=== PATIENT | male | born 1930 | race Caucasian/White ===

== ENCOUNTER 2017-01-10 19:21 | Inpatient (IN) | payer MEDICARE, OTHER ==
[~2017-01-10] VITALS: Ht 180.3 cm; Wt 70.6 kg
[2017-01-10] MEDS ORDERED: ASPIRIN 325 MG TAB PO STA (19:33)
--- NOTE | 2017-01-10 19:48 | RADRPT ---
PROCEDURE: CT Brain without contrast. CLINICAL INDICATION: Code stroke TECHNIQUE: A CT of the brain was performed utilizing axial imaging from the skull base through the vertex without intravenous contrast. Multiplanar reformatted images were made.The CTDIvol is 43.16 mGy and the DLP is 720.23 mGycm. One or more the following dose reduction techniques were utilized: Automated exposure control, adjus tment of the mA and / or kV according to patient's size, or use of iterative reconstruction techniqu e. DICOM images are available. COMPARISON: None. FINDINGS: There is no intracranial hemorrhage, mass effect, or midline shift. No extra-axial fluid collection is seen. Moderate atrophy is identified with compensatory ventricular and sulcal enlargement. Mil d decreased attenuation is seen in the periventricular and deep white matter, compatible with microv ascular ischemic disease. The lindsey white matter differentiation is well preserved with no acute infa rct detected. The osseous structures and visualized paranasal sinuses are unremarkable. Arterial ca lcification. IMPRESSION: No acute bleed. No acute major territory infarct seen. Critical result discussed Dr. Torres at 07: 45 p.m. on 01/10/2017. RPTAT: HJES .Leighton Alas MD, MD Date Time Electronically viewed and signed by .Leighton Alas MD, MD on 01/10/2017 19:48 .S/
[2017-01-10 19:56] LABS: BASOPHILS % 0.7 % (0.0-2.0); EOSINOPHILS # 0.2 10^3/ul (0.0-0.5); EOSINOPHILS % 2.7 % (0.0-7.0); HEMOGLOBIN 12.5 g/dl (14.0-18.0); LYMPHOCYTES # 1.6 10^3/ul (0.8-2.9); LYMPHOCYTES % 27.7 % (15.0-51.0); MEAN CORPUSCULAR HGB CONC 32.1 g/dl (32.0-37.0); MEAN CORPUSCULAR VOLUME 93.8 fl (82.0-101.0); MEAN PLATELET VOLUME 10.3 fl (7.4-10.4); MONOCYTE # 0.6 10^3/ul (0.3-0.9); NEUTROPHIL # 3.3 10^3/ul (1.6-7.5); NEUTROPHILS % 57.7 % (39.0-77.0); PLATELET COUNT 136 10^3/UL (140-415); POSITIVE DIFF @See below; RED BLOOD COUNT 4.16 10^6/ul (4.70-6.10); RED CELL DISTRIBUTION WIDTH 12.8 % (11.5-14.5); WHITE BLOOD COUNT 5.6 10^3/ul (4.8-10.8)
[2017-01-10 20:09] LABS: INR 0.98; PARTIAL THROMBOPLASTIN TIME 27.8 Sec (25.0-35.0)
[2017-01-10 20:11] LABS: ALBUMIN 3.9 g/dl (3.3-4.9); ALBUMIN/GLOBULIN RATIO 1.18; CALCIUM 8.7 mg/dl (8.4-10.2); CREATININE 3.23 mg/dl (0.61-1.24); POTASSIUM 4.7 mmol/L (3.5-5.1); TOTAL PROTEIN 7.2 g/dl (6.1-8.1)
--- NOTE | 2017-01-10 20:13 | RADRPT ---
PROCEDURE: XR Chest. CLINICAL INDICATION: Possible stroke. TECHNIQUE: Single frontal view of the chest. COMPARISON: None. FINDINGS: The cardiomediastinal silhouette is within normal limits. Aortic calcifications are present. There is a retrocardiac opacity. No evidence of pneumothorax. Degenerative changes of the spine and shoulder joints are present. IMPRESSION: 1. Retrocardiac opacity likely representing subsegmental atelectasis (favored) or pneumonia. RPTAT:AAJJ Contreras Cordova Physician Date Time Electronically viewed and signed by Contreras Cordova Physician on 01/10/2017 20:13 QL/
[2017-01-10 20:23] LABS: CK-MB 1.33 ng/ml (0.0-2.4); TROPONIN-I 0.028 ng/ml (0.00-0.12)
[2017-01-10 20:56] LABS: ADD UMIC YES; UR ASCORBIC ACID NEGATIVE (NEGATIVE); UR BILIRUBIN (Dip) NEGATIVE (NEGATIVE); UR BLOOD (Dip) 1+ mg/dL (NEGATIVE); UR CLARITY CLEAR (CLEAR); UR COLOR STRAW (YELLOW); UR GLUCOSE (Dip) 1+ mg/dL (NEGATIVE); UR KETONES (Dip) NEGATIVE (NEGATIVE); UR LEUKOCYTE ESTERASE (Dip) NEGATIVE Leu/ul (NEGATIVE); UR NITRITE (Dip) NEGATIVE (NEGATIVE); UR RBC 1 /HPF (0-5); UR SPECIFIC GRAVITY (Dip) 1.012 (1.003-1.030); UR TOTAL PROTEIN (Dip) 2+ mg/dl (NEGATIVE); UR UROBILINOGEN (Dip) NEGATIVE (NEGATIVE)
[2017-01-10] MEDS ORDERED: LABETALOL HCL 20MG INJ IV ONE ×2 (21:30→22:30)
[2017-01-10 21:41] LABS: BARBITURATES Negative (NEGATIVE); BENZODIAZEPINES Negative (NEGATIVE); CANNABINOIDS Negative (NEGATIVE); COCAINE Negative (NEGATIVE); OPIATES Negative (NEGATIVE)
[2017-01-10 22:02] VITALS: TEMP 98.4
[2017-01-10] MEDS ORDERED: TOBR5DRO14 LEFT EYE (22:14)
[2017-01-10] MEDS ORDERED: DOXY100T20 PO (22:14)
--- NOTE | 2017-01-10 22:27 | ERD ---
ER Documentation Chief Complaint Chief Complaint weakness, fall, aphagia today- last known well 1800 HPI This is an 86-year-old male presents to the emergency department complaining of a sudden onset of slurred speech and weakness that occurred 35 minutes prior to arrival. The patient's last known normal time was at 6:45 PM. The patient was standing when he collapsed and slowly slid down the side of the bed and this was witnessed by his . She stated he did not hit his head or lose consciousness. He suddenly had slurred speech and was speaking nonsensical sentences. He is Prydeinig speaking but also understands Kittitian and Bulgarian. He had no recent fever shaking or chills. He has not complained of a recent headache. His known history of kidney failure but is not on dialysis. He also has a history of [id number] diabetes and hypertension. His daughter and immediately brought him to the emergency department to be further evaluated. He recently began doxycycline several days ago as he had a nodule on his left eye that had been surgically removed. ROS All systems reviewed and are negative except as per history of present illness. Medications Home Meds Reported Medications Tobramycin-Dexamethasone (Tobramycin-Dexamethasone Ophth) 0.3%-0.1% - 5 Ml Drops.susp, 1 DROP LEFT EYE TID, #1 EA 01/10/17 Doxycycline Hyclate* (Doxycycline Hyclate*) 100 Mg Tablet.dr, 100 MG PO BID, TAB 01/10/17 Allergies Allergies: Coded Allergies: No Known Allergy (Unverified , 01/10/17) PMhx/Soc History of Surgery: Yes (HERNIA, PROSTATE, GALLBLADDER) Anesthesia Reaction: No Hx Neurological Disorder: No Hx Respiratory Disorders: No Hx Cardiac Disorders: No Hx Psychiatric Problems: No Hx Miscellaneous Medical Probl: No (HTN) Hx Alcohol Use: No Hx Tobacco Use: No Smoking Status: Never smoker Physical Exam Vitals Vital Signs Date Time Temp Pulse Resp B/P Pulse Ox O2 Delivery O2 Flow Rate FiO2 01/10/17 22:02 98.4 79 18 183/80 100 Nasal Cannula 2.0 01/10/17 21:08 71 20 208/98 100 Nasal Cannula 2.0 01/10/17 20:26 98.6 69 18 189/95 100 Nasal Cannula 2.0 01/10/17 20:08 Nasal Cannula 2 01/10/17 20:08 Nasal Cannula 2.0 01/10/17 20:00 98 2.0 01/10/17 19:25 97.7 86 30 119/88 98 Physical Exam Constitutional:Well-developed. Well-nourished. HEENT:Normocephalic. Atraumatic.Pupils were equal round reactive to light. Moist mucous membranes.No tonsillar exudates. Surgical scab on the left is clean dry and intact Neck: No nuchal rigidity. No lymphadenopathy. No posterior cervical spine tenderness or step-offs. Respiratory: Not using accessory muscles of respiration.Lungs were clear to auscultation bilaterally. No rhonchi. No rales. No wheezing. Cardiovascular: Regular rate regular rhythm.No murmurs. No rubs were appreciated.S1, S2 normal. Distal pulses are palpable 2+ bilaterally. GI: Abdomen was soft. Nontender. Non Distended. No pulsatile abdominal masses or bruits. No rebound. No guarding. Bowel sounds were present and normal. Muscle skeletal: Full range of motion of both the upper and lower extremities bilaterally.Normal muscle tone.No assymetrical calf tenderness or swelling. Skin: No petechia, no purpura. No lesions on the palms or the soles of the feet. No maculopapular rash. NEURO: Patient was alert, awake. Patient did not have slurred speech. He was speaking nonsensical words. He would follow verbal commands. No limb ataxia. No facial droop. Gait observed and normal with no ataxia. Patient intact to sharp and dull. Result Diagram: 01/10/17192401/10/171924 Results 24 hrs Laboratory Tests Test 01/10/17 19:25 01/10/17 20:15 White Blood Count 5.610^3/ul Red Blood Count 4.1610^6/ul Hemoglobin 12.5g/dl Hematocrit 39.0% Mean Corpuscular Volume 93.8fl Mean Corpuscular Hemoglobin 30.0pg Mean Corpuscular Hemoglobin Concent 32.1g/dl Red Cell Distribution Width 12.8% Platelet Count 38057^3/UL Mean Platelet Volume 10.3fl Neutrophils % 57.7% Lymphocytes % 27.7% Monocytes % 11.0% Eosinophils % 2.7% Basophils % 0.7% Nucleated Red Blood Cells % 0.0/100WBC Neutrophils # 3.310^3/ul Lymphocytes # 1.610^3/ul Monocytes # 0.610^3/ul Eosinophils # 0.210^3/ul Basophils # 0.010^3/ul Nucleated Red Blood Cells # 0.010^3/ul Prothrombin Time 13.0Sec Prothrombin Time Ratio 1.0 INR International Normalized Ratio 0.98 Activated Partial Thromboplast Time 27.8Sec Sodium Level 147mmol/L Potassium Level 4.7mmol/L Chloride Level 114mmol/L Carbon Dioxide Level 21mmol/L Anion Gap 17 Blood Urea Nitrogen 54mg/dl Creatinine 3.23mg/dl Glucose Level 101mg/dl Hemoglobin A1c 5.6% Calcium Level 8.7mg/dl Total Bilirubin 0.0mg/dl Direct Bilirubin 0.00mg/dl Indirect Bilirubin 0.0mg/dl Aspartate Amino Transf (AST/SGOT) 16IU/L Alanine Aminotransferase (ALT/SGPT) 25IU/L Alkaline Phosphatase 108IU/L Creatine Kinase 41IU/L Creatine Kinase Index 3.2 Creatinine Kinase MB (Mass) 1.33ng/ml Troponin I 0.028ng/ml Total Protein 7.2g/dl Albumin 3.9g/dl Globulin 3.30g/dl Albumin/Globulin Ratio 1.18 Urine Color STRAW Urine Clarity CLEAR Urine pH 5.0 Urine Specific Jackson 1.012 Urine Ketones NEGATIVEmg/dL Urine Nitrite NEGATIVEmg/dL Urine Bilirubin NEGATIVEmg/dL Urine Urobilinogen NEGATIVEmg/dL Urine Leukocyte Esterase NEGATIVELeu/ul Urine Microscopic RBC 1/HPF Urine Microscopic WBC 0/HPF Urine Hemoglobin 1+mg/dL Urine Glucose 1+mg/dL Urine Total Protein 2+mg/dl Urine Opiates Screen Negative Urine Barbiturates Negative Urine Amphetamines Screen Negative Urine Benzodiazepines Screen Negative Urine Cocaine Screen Negative Urine Cannabinoids Negative Current Medications Medications (Trade) Dose Ordered Sig/Jerri Route PRN Reason Start Time Stop Time Status Last Admin Dose Admin Aspirin (Aspirin) 325 mg ONCE STAT PO 01/10/17 19:33 01/10/17 19:34 DC 01/10/17 19:33 Labetalol HCl (Labetalol) 10 mg ONCE ONCE IV 01/10/17 21:30 01/10/17 21:31 DC 01/10/17 21:09 [facility] This patient presented to the emergency department with strokelike symptoms. The patient was immediately placed on a monitor and storage bin tender continuous pulse oximetry and IV access was established by nursing staff. The patient had an NIH stroke scale of 1. CT scan of the head revealed no acute intracranial hemorrhage mass-effect or midline shift. The patient was seen and evaluated by the telemetry psychiatrist Dr. Vallecillo. Upon my reevaluation with the patient returning from the CT scan his symptoms had significantly improved. The patient was now speaking in full complete sentences answering all questions appropriately with no focal neurological deficits at this time. Given that the patient's symptoms had significantly improved he was no longer a TPA candidate. He will be admitted for observation and will undergo an MRI upon admission. This patient also presented to the emergency department with severely elevated blood pressure. My differential diagnosis included but was not limited to conditions that could end-organ damage such as acute coronary syndrome, acute pulmonary edema, aortic dissection, subarachnoid hemorrhage, intracerebral hemorrhage, cerebral infarction, withdrawal syndromes from beta blockers, or states of catecholamine excess such as pheochromocytoma or drug intoxication. The patient had uncontrolled hypertensive with end-organ damage to suggest hypertensive emergency. The treatment goal was immediate reduction of the mean arterial blood pressure. This was done in a controlled, graded manor, using improvement of the patient's condition as a guide. The patient's blood pressure reduction did not exceed more then a 20-25 percent reduction within the first 30 to 60 minutes. The antihypertensive agent used was IV labetalol and Cardene. The patient did have a swallow study which he passed. 12 Lead EKG tracing ordered and reviewed by myself showed: Normal sinus rhythm of 84 bpm and no arrhythmia. CO interval normal. QRS duration normal. No ST segment elevation. Premature ventricular complexes No ST segment depression. No changes consistent with acute ischemia. Patient will be admitted to the telemetry service in serious condition to the hospitalist with an anticipated stay of greater than 2 midnights Critical Care: Time: 55 minutes Treatments/Evaluations: Close monitoring and treatment of unstable vital signs, cardiorespiratory, and neurologic status, while maintaining tight balance of fluid, respiratory, and cardiac interventions. Time does not include performing any of the above billable procedures. Departure Diagnosis: Primary Impression: TIA (transient ischemic attack) Transient cerebral ischemia type: unspecified Qualified Code: G45.9 - Transient cerebral ischemia, unspecified type Additional Impression: Hypertensive emergency, no CHF Condition: Serious SUKDHEEP LUIS Jan 10, 2017 22:27
[2017-01-10] MEDS ORDERED: NICARDipine HCL 30 MG CAPSULE PO ONE (22:30)
[2017-01-10 23:20] VITALS: PULSE 65
[2017-01-10] MEDS ORDERED: ALBUTEROL/IPRATROPIUM (NEB) 3 ML AMP HHN PRN (23:30)
[2017-01-10] MEDS ORDERED: NACL 0.9% 3 ML SYG IV SCH (23:30)
[2017-01-10] MEDS ORDERED: ONDANSETRON 4 MG INJ IV PRN (23:30)
[2017-01-10] MEDS ORDERED: LORAZEPAM 0.5 MG TAB PO PRN (23:30)
[2017-01-10] MEDS ORDERED: morphine 2 MG INJ IV PRN (23:30)
[2017-01-10 23:37] VITALS: BP 185/89; PULSE 77; RESP 18; Ht 180.3 cm; Wt 70.6 kg
[2017-01-11] VITALS (11 sets, daily range): BP systolic 114–204; BP diastolic 64–91; PULSE 59–78; RESP 14–19
[2017-01-11] MEDS ORDERED: hydrALAzine 20 MG INJ IV PRN (01:00)
--- NOTE | 2017-01-11 06:02 | HP ---
Date/Time of Note Date/Time of Note DATE: 01/11/17 TIME: 05:49 Assessment/Plan VTE Prophylaxis VTE Prophylaxis Intervention: heparin Lines/Catheters IV [facility] Saline Lock Urinary Cath still in place: No Assessment/Plan Assessment/Plan 1. TIA, most likely secondary to orthostatic hypotension -Head CT negative for acute findings -He will be on aspirin, statin and heparin for DVT prophylaxis -will order MRI of the brain and bilateral carotid Doppler ultrasound -For 24 hours, will allow permissive hypertension and will not treat BP unless it is greater than 220/120 -Tylenol will be given for any sign of fever -Check A1c and fasting lipid in a.m. -Neurology consult -PT and speech/swallow eval 2. Hypertensive urgency -See #1 3. CKD -Avoid nephrotoxins -Consider nephrology consult 4. Mild hypernatremia -will check a.m. lab for now 5. Retrocardiac opacity on the chest x-ray, likely atelectasis -No sign of pneumonia -Supplemental oxygen as needed -Will treat with antibiotic based on clinical course 6. Recent left eye surgery -Continue outpatient eyedrops HPI/ROS Admit Date/Time Admit Date/Time Jan 10, 2017 at 21:04 Hx of Present Illness This is an 86-year-old male with a history of hypertension, CKD and recent left eye surgery who presented to the ER for slurred speech. Patient stated she was diagnosed with orthostatic hypotension 8 years ago and had multiple workup with no definitive diagnosis. He said he had fell down multiple times since the diagnosis of orthostatic hypotension. What happens this time was, he was lying in bed when the phone, which was out of reach, start ringing. He got out of his bed quickly, then he said his vision went black and fell down to the floor in his bedroom. He was then noted to have slurred speech. Patient was brought to the ER about 35 minutes after symptom onset. No focal weakness/numbness, headache, facial droop, or seizure-like activity. ER physician talked to the on -call tele-neurologist who did not recommend a TPA given symptom have resolved. He said he had extensive workup for orthostatic hypotension but said 'nobody knows the reason". He had negative stress tests 3 months ago. About a year ago he was told his bilateral carotid Doppler ultrasound was normal. He also states about a year ago he had an MRI and was told that "there is something inside, not serious staff " ER course: Initial blood pressure 119/88 but has been noted to be as high as 208 /98. He was given a nicardipine and labetalol while he was in the ER. Head CT was negative for acute findings. Chest x-ray showed retrocardiac opacity, atelectasis likely, but pneumonia also a possibility. Labs shows sodium of 147 , chloride 114, BUN 54, creatinine 3.2. PMH/Family/Social Social History Smoking Status: Unknown if ever smoked Exam/Review of Systems Vital Signs Vitals Vital Signs Date Time Temp Pulse Resp B/P Pulse Ox O2 Delivery O2 Flow Rate FiO2 01/11/17 04:09 97.8 54 18 163/64 96 01/10/17 23:37 Room Air 01/10/17 22:45 2.0 Intake and Output 01/10/17 01/10/17 01/11/17 15:00 23:00 07:00 Intake Total 340 ml Output Total 250 ml Balance 90 ml Exam Constitutional: other (No acute distress) Head: atraumatic, normocephalic Eyes: other (Left eye, status post recent surgery) Neck: other Respiratory: clear to auscultation Cardiovascular: nl pulses, regular rate and rhythm Gastrointestinal: non-tender, soft Extremities: normal pulses Neurological: nl mental status, nl speech, nl strength Labs Result Diagram: 01/10/17192401/10/171924 Medications Medications Current Medications Lorazepam (Ativan) 0.5 mg Q8H PRN PO ANXIETY; Start 01/10/17 at 23:30 Ondansetron HCl (Zofran Inj) 4 mg Q6H PRN IV NAUSEA AND/OR VOMITING; Start 02/14 at 23:30 Aspirin (Aspirin) 81 mg DAILY PO ; Start 01/11/17 at 09:00 Acetaminophen (Tylenol Tab) 650 mg Q6H PRN PO PAIN LEVEL 1-3 OR FEVER; Start 01/10/17 at 23:30 Morphine Sulfate (morphine) 2 mg Q4H PRN IV PAIN LEVEL 7-10; Start 01/10/17 at 23:30 Famotidine (Pepcid) 20 mg DAILY PO ; Start 01/11/17 at 09:00 Heparin Sodium (Porcine) (Heparin (5000 Units/0.5 ml)) 5,000 unit Q12 SC ; Start 01/11/17 at 09:00 Atorvastatin Calcium (Lipitor) 20 mg DAILY PO ; Start 01/11/17 at 09:00 Doxycycline Hyclate (Vibramycin) 100 mg BID PO ; Start 01/11/17 at 00:00 Tobramycin/ Dexamethasone (Tobradex Oph Drop) 1 drop TID LEFT EYE ; Start 01/11 at 09:00 Hydralazine HCl (Apresoline) 10 mg Q4H PRN IV FOR SBP ABOVE 220 & DBP [id number]; Start 01/11/17 at 01:00 MAREK TERAN MD Jan 11, 2017 06:00
[2017-01-11 07:34] LABS: BASOPHIL # 0.1 10^3/ul (0.0-0.1); BASOPHILS % 0.9 % (0.0-2.0); EOSINOPHILS # 0.2 10^3/ul (0.0-0.5); EOSINOPHILS % 3.3 % (0.0-7.0); HEMATOCRIT 34.3 % (42.0-52.0); LYMPHOCYTES # 1.8 10^3/ul (0.8-2.9); LYMPHOCYTES % 30.3 % (15.0-51.0); MEAN CORPUSCULAR HEMOGLOBIN 29.3 pg (29.0-33.0); MEAN CORPUSCULAR HGB CONC 32.1 g/dl (32.0-37.0); MEAN CORPUSCULAR VOLUME 91.5 fl (82.0-101.0); MEAN PLATELET VOLUME 11.4 fl (7.4-10.4); MONOCYTE # 0.7 10^3/ul (0.3-0.9); MONOCYTES % 11.4 % (0.0-11.0); NEUTROPHIL # 3.1 10^3/ul (1.6-7.5); NEUTROPHILS % 53.9 % (39.0-77.0); PLATELET COUNT 134 10^3/UL (140-415); RED BLOOD COUNT 3.75 10^6/ul (4.70-6.10); RED CELL DISTRIBUTION WIDTH 12.9 % (11.5-14.5); WHITE BLOOD COUNT 5.8 10^3/ul (4.8-10.8)
[2017-01-11 07:54] LABS: ALBUMIN 3.1 g/dl (3.3-4.9); ALBUMIN/GLOBULIN RATIO 1.03; BILIRUBIN,INDIRECT 0.1 mg/dl (0-1.1); BILIRUBIN,TOTAL 0.1 mg/dl (0.2-1.3); CALCIUM 8.6 mg/dl (8.4-10.2); CHOL/HDL RATIO 3.5 RATIO; CREATININE 2.94 mg/dl (0.61-1.24); POTASSIUM 4.2 mmol/L (3.5-5.1); TOTAL PROTEIN 6.1 g/dl (6.1-8.1)
[2017-01-11] MEDS: HEPARIN 5,000 UNIT/0.5 ML VIAL SC SCH ×3 (09:00→21:48)
[2017-01-11] MEDS: DOXYCYCLINE 100 MG TAB PO SCH ×3 (09:27→21:00)
[2017-01-11] MEDS: TOBRAMYCIN/DEXAMETH 2.5 ML OPH LEFT EYE SCH ×4 (09:28→21:49)
[2017-01-11] MEDS: ASPIRIN 81 MG TAB PO SCH (09:28)
[2017-01-11] MEDS: FAMOTIDINE 20 MG TAB PO SCH (09:28)
[2017-01-11] MEDS: ATORVASTATIN 20 MG TAB PO SCH (09:28)
--- NOTE | 2017-01-11 11:19 | RADRPT ---
PROCEDURE: US Carotids. CLINICAL INDICATION: Syncope and TIA TECHNIQUE: Multiple sonographic of the carotid bifurcation region and vertebral arteries were obta ined utilizing lindsey scale, duplex and color-flow imaging. The images were reviewed on a PACS worksta tion. COMPARISON: January 29, 2011 FINDINGS: Evaluation of the right carotid bifurcation region reveals mild calcific atherosclerotic disease. Evaluation of the left carotid bifurcation region reveals mild calcific atherosclerotic disease. There is antegrade flow within the vertebral arteries bilaterally. RIGHT CAROTID MEASUREMENTS: Common Carotid Xiupet17 (cm/sec) Internal Carotid Artery - [id number] (cm/sec) Internal Carotid Artery - mid53 (cm/sec) Internal Carotid Artery - [id number] (cm/sec) Internal Carotid/Common Carotid1.1 LEFT CAROTID MEASUREMENTS: Common Carotid Artery 67 (cm/sec) Internal Carotid Artery - proximal 64 (cm/sec) Internal Carotid Artery - mid 56 (cm/sec) Internal Carotid Artery - distal 51 (cm/sec) Internal Carotid/Common Carotid 1.0 IMPRESSION: 1. No evidence for hemodynamically significant carotid artery stenosis - validated velocity measur ements with angiographic measurements, velocity criteria are extrapolated from diameter data as defi suzan by the Society of Radiologists in Ultrasound Consensus Conference Radiology 2003; 229; 340 - 346 . This study does indirectly reference the measurement of the distal ICA diameter as the denominator for stenosis measurement. 2. Normal antegrade flow in the vertebral arteries bilaterally. RPTAT: AARR Physician Espinoza Date Time Electronically viewed and signed by Physician Espinoza on 01/11/2017 11:18 MARLNEI/
--- NOTE | 2017-01-11 15:34 | RADRPT ---
PROCEDURE: MR Brain without contrast. CLINICAL INDICATION: Neurologic deficit TECHNIQUE: An MRI of the brain was performed on a high-resolution MR scanner utilizing the followi ng sequences: Sagittal and axial T1 weighted, axial T2 weighted, axial FLAIR, coronal GRE, and axial diffusion weighted with ADC mapping. Images were reviewed high-resolution PACS workstation. No con trast was administered. COMPARISON: Correlation head CT 01/10/2017 FINDINGS: 4 mm right parafalcine dural based structure. No acute parenchymal hemorrhage, mass effect, or midline shift. No evidence of recent infarct. Scatt ered subcortical, deep, and periventricular white matter T2-weighted/FLAIR hyperintensities are cons istent with chronic microvascular ischemic disease. Prominence of the cortical sulci and ventricles are related to moderate cerebral volume loss. No suspicious parenchymal hypointense signal abnormalities are seen on the GRE images to suggest the presence of blood degradation products. Normal flow voids are visible in the proximal intracranial arteries suggesting their patency. No significant opacification of the paranasal sinuses or mastoids.The bilateral ocular lens are thin which could be due to prior lens replacement surgery. IMPRESSION: No acute intracranial abnormality or evidence of recent infarct. Mild chronic microvascular disease and moderate volume loss. 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 RPTAT: AA .Sebastian Cortez MD, MD Date Time Electronically viewed and signed by .Sebastian Cortez MD, on 01/11/2017 15:33 .T/
--- NOTE | 2017-01-11 15:55 | RADRPT ---
Echocardiogram Report Patient Name: JAMAAL RODRIGUEZ Gender: Male Date: 1930 Study Date: 11-Jan-2017 Exhauster: Dean Barahona [facility] Location: [id number] Ref. Physician: MAREK TERAN Quality: Good Procedures: Transthoracic echocardiogram with complete 2D, M-Mode, and doppler examination. Indications: Transient Ischemic Attack. 2D/M Mode Doppler Measurement Value Normal Ranges Measurement Value Normal Ranges LVIDd 2D 4.1 3.5 - 5.6 cm AV Peak Jaylon 1.4 m/sec LVIDs 2D 2.5 2.1 - 4.1 cm AV Peak PG 7.8 mmHg LVPWd 2D 1.0 0.6 - 1.1 cm AI Peak PG 109.9 mmHg IVSd 2D 1.1 0.6 - 1.1 cm AI Peak Jaylon 5.2 m/sec AoR Diam 2D 3.2 2.0 - 3.7 cm AI PHT 444.0 msec EDV 2D 75.8 cm3 LVOT Peak Jaylon 0.8 m/sec ESV 2D 15.2 cm3 LVOT Peak PG 2.7 mmHg LA Dimen 2D 3.7 2.3 - 4.0 cm MV E Peak Jaylon 0.8 m/sec MV A Peak Jaylon 0.8 m/sec MV E/A 0.9 MV Decel Time 237 msec MV Decel Wilkin 3 MV E/A 0.9 TR Peak Jaylon 3.1 m/sec TR Peak PG 37.8 mmHg RVSP 41.0 mmHg Findings Left Ventricle: Lower limits of normal systolic function. Normal left ventricular cavity size. Mild concentric left ventricular hypertrophy. Ejection fraction is visually estimated at 55 %. Tissue Doppler/Mitral Doppler indices are consistent with impaired relaxation (Stage I diastolic dysfunction). Right Ventricle: Normal right ventricular size. Normal right ventricular systolic function. Left Atrium: The left atrium is normal in size. Right Atrium: The right atrium is normal in size. Mitral Valve: Mitral valve leaflets appear mildly thickened. Mild mitral annular calcification. Trace mitral regurgitation. Aortic Valve: No hemodynamically significant aortic stenosis by doppler. Aortic cusps appear mildly calcified. Mild to moderate aortic valve regurgitation. Tricuspid Valve: Normal appearance of the tricuspid valve. Estimated peak PA systolic pressure 41 mmHg. There is mild tricuspid regurgitation. Pulmonic Valve: Pulmonic valve not well visualized. There is mild pulmonic regurgitation. Pericardium: Normal pericardium with no significant pericardial effusion. Aorta: Normal aortic root. IVC: Normal size and normal respiratory collapse consistent with normal right atrial pressure. Conclusions 1.Lower limits of normal systolic function. Normal left ventricular cavity size. Mild concentric left ventricular hypertrophy. Ejection fraction is visually estimated at 55 %. Tissue Doppler/Mitral Doppler indices are consistent with impaired relaxation (Stage I diastolic dysfunction). 2.The left atrium is normal in size. 3.Mitral valve leaflets appear mildly thickened. Mild mitral annular calcification. Trace mitral regurgitation. 4.No hemodynamically significant aortic stenosis by doppler. Aortic cusps appear mildly calcified. Mild to moderate aortic valve regurgitation. 5.Normal appearance of the tricuspid valve. Estimated peak PA systolic pressure 41 mmHg. There is mild tricuspid regurgitation. Electronically Signed By: Severino Faustin 11-Jan-2017 15:55:23 -0800 Patient Name: JAMAAL RODRIGUEZ Study Date: 11-Jan-2017 [id number]
[2017-01-11] MEDS ORDERED: AMLODIPINE 10 MG TAB PO ONE (17:00)
[2017-01-11] MEDS ORDERED: HYDROCHLOROTHIAZIDE 25 MG TAB PO ONE (17:00)
--- NOTE | 2017-01-11 17:23 | PN ---
Date/Time of Note Date/Time of Note DATE: 01/11/17 TIME: 17:13 Assessment/Plan VTE Prophylaxis VTE Prophylaxis Intervention: SCD's Lines/Catheters IV Catheter Type (from Nrs): Saline Lock Urinary Cath still in place: No Assessment/Plan Assessment/Plan 86 yo M admitted for 10 minutes of slurred speech in the setting of very high BP , clinical picture consistent with TIA v hypertensive urgency -cont asa, statin -start BP control ccb selected as lowish HRs preclude bb, ?ANH on CKD makes me reluctant to use acei, given h/o orthostasis I am disinclined to use diuretic -MRAs pending -PT/OT pending. ST in process -will call full stack developer tomorrow per daughter request cont home meds for recent eye surgery anticipate discharge in 1-2 days pending results of above Subjective 24 Hr Interval Summary Free Text/Dictation Pt and daughter state he is back to baseline Pt and daughter know about pt's meningioma that he's had for years Pt with known CKD hx, daughter requesting I call full stack developer Dr Shine Moreira , p [phone] Has only been in sinus on tele Exam/Review of Systems Vital Signs Vitals Vital Signs Date Time Temp Pulse Resp B/P Pulse Ox O2 Delivery O2 Flow Rate FiO2 01/11/17 16:19 59 01/11/17 15:57 98.1 19 204/91 96 01/10/17 23:37 Room Air 01/10/17 22:45 2.0 Intake and Output 01/10/17 01/10/17 01/11/17 15:00 23:00 07:00 Intake Total 340 ml Output Total 250 ml Balance 90 ml Exam nad speech not slurred no mrg lungs clear abd soft no rashes 5/5 strength bl U and LEs MRI just meningioma, TTE noted, a1c <6.5, LDL ok Results Result Diagram: 01/11/17 0652 01/11/17 0652 Results 24 hrs Laboratory Tests Test 01/10/17 19:25 01/10/17 20:15 01/11/17 06:52 White Blood Count 5.6 5.8 Red Blood Count 4.16 L 3.75 L Hemoglobin 12.5 L 11.0 L Hematocrit 39.0 L 34.3 L Mean Corpuscular Volume 93.8 91.5 Mean Corpuscular Hemoglobin 30.0 29.3 Mean Corpuscular Hemoglobin Concent 32.1 32.1 Red Cell Distribution Width 12.8 12.9 Platelet Count 136 L 134 L Mean Platelet Volume 10.3 11.4 H Neutrophils % 57.7 53.9 Lymphocytes % 27.7 30.3 Monocytes % 11.0 11.4 H Eosinophils % 2.7 3.3 Basophils % 0.7 0.9 Nucleated Red Blood Cells % 0.0 0.0 Neutrophils # 3.3 3.1 Lymphocytes # 1.6 1.8 Monocytes # 0.6 0.7 Eosinophils # 0.2 0.2 Basophils # 0.0 0.1 Nucleated Red Blood Cells # 0.0 0.0 Prothrombin Time 13.0 Prothrombin Time Ratio 1.0 INR International Normalized Ratio 0.98 Activated Partial Thromboplast Time 27.8 Sodium Level 147 H 146 H Potassium Level 4.7 4.2 Chloride Level 114 H 117 H Carbon Dioxide Level 21 20 L Anion Gap 17 H 13 Blood Urea Nitrogen 54 H 48 H Creatinine 3.23 H 2.94 H Glucose Level 101 87 Hemoglobin A1c 5.6 5.6 Calcium Level 8.7 8.6 Total Bilirubin 0.0 L 0.1 L Direct Bilirubin 0.00 0.00 Indirect Bilirubin 0.0 0.1 Aspartate Amino Transf (AST/SGOT) 16 15 Alanine Aminotransferase (ALT/SGPT) 25 19 Alkaline Phosphatase 108 81 Creatine Kinase 41 Creatine Kinase Index 3.2 Creatinine Kinase MB (Mass) 1.33 Troponin I 0.028 Total Protein 7.2 6.1 # Albumin 3.9 3.1 L Globulin 3.30 H 3.00 Albumin/Globulin Ratio 1.18 1.03 Urine Color STRAW Urine Clarity CLEAR Urine pH 5.0 Urine Specific [place] 1.012 Urine Ketones NEGATIVE Urine Nitrite NEGATIVE Urine Bilirubin NEGATIVE Urine Urobilinogen NEGATIVE Urine Leukocyte Esterase NEGATIVE Urine Microscopic RBC 1 Urine Microscopic WBC 0 Urine Hemoglobin 1+ H Urine Glucose 1+ H Urine Total Protein 2+ H Urine Opiates Screen Negative Urine Barbiturates Negative Urine Amphetamines Screen Negative Urine Benzodiazepines Screen Negative Urine Cocaine Screen Negative Urine Cannabinoids Negative Magnesium Level 2.0 Triglycerides Level 85 Cholesterol Level 146 LDL Cholesterol, Calculated 88 HDL Cholesterol 41 Cholesterol/HDL Ratio 3.5 Medications Medications Current Medications Ondansetron HCl (Zofran Inj) 4 mg Q6H PRN IV NAUSEA AND/OR VOMITING; Start 02/14 at 23:30 Aspirin (Aspirin) 81 mg DAILY PO Last administered on 01/11/17 09:28; Admin Dose 81 MG; Start 01/11/17 at 09:00 Acetaminophen (Tylenol Tab) 650 mg Q6H PRN PO PAIN LEVEL 1-3 OR FEVER; Start 01/10/17 at 23:30 Morphine Sulfate (morphine) 2 mg Q4H PRN IV PAIN LEVEL 7-10; Start 01/10/17 at 23:30 Famotidine (Pepcid) 20 mg DAILY PO Last administered on 01/11/17 09:28; Admin Dose 20 MG; Start 01/11/17 at 09:00 Heparin Sodium (Porcine) (Heparin (5000 Units/0.5 ml)) 5,000 unit Q12 SC Last administered on 01/11/17 10:54; Admin Dose 5,000 UNIT; Start 01/11/17 at 09: 00 Atorvastatin Calcium (Lipitor) 20 mg DAILY PO Last administered on 01/11/17 09:28; Admin Dose 20 MG; Start 01/11/17 at 09:00 Tobramycin/ Dexamethasone (Tobradex Oph Drop) 1 drop TID LEFT EYE Last administered on 01/11/17 13:12; Admin Dose 1 DROP; Start 01/11/17 at 09:00 Hydralazine HCl (Apresoline) 10 mg Q4H PRN IV FOR SBP ABOVE 220 & DBP [id number]; Start 01/11/17 at 01:00 Amlodipine Besylate (Norvasc) 10 mg ONCE ONCE PO ; Start 01/11/17 at 17:00; Stop 01/11/17 at 17:01 Amlodipine Besylate (Norvasc) 10 mg DAILY PO ; Start 01/12/17 at 09:00 STUART JARRELL MD Jan 11, 2017 17:23
[2017-01-11] MEDS: ACETAMINOPHEN 325 MG TAB PO PRN (18:27)
[2017-01-11] MEDS ORDERED: hydrALAzine 20 MG INJ IV ONE (19:00)
[2017-01-11 19:32] LABS: ADD UMIC YES; UR ASCORBIC ACID NEGATIVE (NEGATIVE); UR BILIRUBIN (Dip) NEGATIVE (NEGATIVE); UR BLOOD (Dip) 1+ mg/dL (NEGATIVE); UR CLARITY CLEAR (CLEAR); UR COLOR STRAW (YELLOW); UR GLUCOSE (Dip) 1+ mg/dL (NEGATIVE); UR KETONES (Dip) NEGATIVE (NEGATIVE); UR LEUKOCYTE ESTERASE (Dip) NEGATIVE Leu/ul (NEGATIVE); UR NITRITE (Dip) NEGATIVE (NEGATIVE); UR RBC 4 /HPF (0-5); UR SPECIFIC GRAVITY (Dip) 1.011 (1.003-1.030); UR TOTAL PROTEIN (Dip) 2+ mg/dl (NEGATIVE); UR UROBILINOGEN (Dip) NEGATIVE (NEGATIVE)
[2017-01-12] VITALS (9 sets, daily range): BP systolic 79–175; BP diastolic 40–90; PULSE 64–78; RESP 16–22
[2017-01-12 08:28] LABS: CALCIUM 8.9 mg/dl (8.4-10.2); CREATININE 2.71 mg/dl (0.61-1.24); POTASSIUM 4.5 mmol/L (3.5-5.1)
[2017-01-12] MEDS ORDERED: AMLODIPINE 10 MG TAB PO SCH (09:00)
[2017-01-12] MEDS ORDERED: HYDROCHLOROTHIAZIDE 25 MG TAB PO SCH (09:00)
[2017-01-12] MEDS: ATORVASTATIN 20 MG TAB PO SCH (10:05)
[2017-01-12] MEDS: DOXYCYCLINE 100 MG TAB PO SCH (10:05)
[2017-01-12] MEDS: ASPIRIN 81 MG TAB PO SCH (10:05)
[2017-01-12] MEDS: FAMOTIDINE 20 MG TAB PO SCH (10:05)
[2017-01-12] MEDS: HEPARIN 5,000 UNIT/0.5 ML VIAL SC SCH (10:11)
[2017-01-12] MEDS: TOBRAMYCIN/DEXAMETH 2.5 ML OPH LEFT EYE SCH ×2 (10:16→13:00)
[2017-01-12] MEDS: ACETAMINOPHEN 325 MG TAB PO PRN (12:29)
--- NOTE | 2017-01-12 14:39 | RADRPT ---
PROCEDURE: MRA Head without contrast. CLINICAL INDICATION: Neurologic deficit, stroke TECHNIQUE: MRA of the brain was performed utilizing 3-D [id number] imaging without intravenous contrast. Source and MIP images were reviewed. COMPARISON: None available. FINDINGS: No significant focal proximal stenosis or large vessel occlusion of the bilateral intracranial ICA, bilateral MCA, or bilateral MELANY. 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 No aneurysm is identified. IMPRESSION: Patent intracranial arteries. No proximal large vessel occlusion identified. RPTAT: AA .Sebastian Cortez MD, MD Date Time Electronically viewed and signed by .Sebastian Cortez MD, on 01/12/2017 14:39 .T/
--- NOTE | 2017-01-12 14:41 | RADRPT ---
PROCEDURE: MRA Neck without contrast. CLINICAL INDICATION: Neurologic deficit TECHNIQUE: An MRA of the major cervical arteries was performed on a utilizing axial 2D time of fli ght and localized 3-D eaqe-lv-phgnem to the carotid bifurcations. No IV contrast was given as orde red. Source and MIPPED images were reviewed. COMPARISON: Correlation carotid ultrasound 01/11/2017 FINDINGS: There is no significant focal stenosis of the bilateral common carotid, right internal carotid or vi sualized vertebral arteries. Flow artifact at the left proximal internal carotid artery without conv incing evidence of significant stenosis. Dominant left vertebral artery. IMPRESSION: Patent major cervical arteries. No convincing evidence of a significant stenosis RPTAT: AA .Sebastian Cortez MD, MD Date Time Electronically viewed and signed by .Sebastian Cortez MD, on 01/12/2017 14:41 .T/
[2017-01-12] MEDS ORDERED: ASPI81TA3 PO (17:10)
[2017-01-12] MEDS ORDERED: ATOR20TA65 PO (17:10)
[2017-01-12] MEDS ORDERED: AMLO-147 PO (17:10)
--- NOTE | 2017-01-12 17:29 | DS ---
Date/Time of Note Date/Time of Note DATE: 01/12/17 TIME: 17:23 Discharge Summary Admission/Discharge Info Admit Date/Time Jan 10, 2017 at 21:04 Discharge Date/Time Discharge Diagnosis hypertensive emergency with resultant TIA Patient Condition: Stable Procedures a1c 5.6, LDL 88 MRA brain 11. IMPRESSION: Patent intracranial arteries. No proximal large vessel occlusion identified. MRA Neck . IMPRESSION: Patent major cervical arteries. No convincing evidence of a significant stenosis MRI brain . IMPRESSION: No acute intracranial abnormality or evidence of recent infarct. Mild chronic microvascular disease and moderate volume loss. 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 Carotid dopplers . IMPRESSION: 1. No evidence for hemodynamically significant carotid artery stenosis - validated velocity measurements with angiographic measurements, velocity criteria are extrapolated from diameter data as defined by the Society of Radiologists in Ultrasound Consensus Conference Radiology 2003; 229; 340 - 346. This study does indirectly reference the measurement of the distal ICA diameter as the denominator for stenosis measurement. 2. Normal antegrade flow in the vertebral arteries bilaterally. 01.11 NCCT head IMPRESSION: No acute bleed. No acute major territory infarct seen. TTE . Conclusions 1. Lower limits of normal systolic function. Normal left ventricular cavity size. Mild concentric left ventricular hypertrophy. Ejection fraction is visually estimated at 55 %. Tissue Doppler/Mitral Doppler indices are consistent with impaired relaxation (Stage I diastolic dysfunction). 2. The left atrium is normal in size. 3. Mitral valve leaflets appear mildly thickened. Mild mitral annular calcification. Trace mitral regurgitation. 4. No hemodynamically significant aortic stenosis by doppler. Aortic cusps appear mildly calcified. Mild to moderate aortic valve regurgitation. 5. Normal appearance of the tricuspid valve. Estimated peak PA systolic pressure 41 mmHg. There is mild tricuspid regurgitation. Hx of Present Illness This is an 86-year-old male with a history of hypertension, CKD and recent left eye surgery who presented to the ER for slurred speech. Patient stated she was diagnosed with orthostatic hypotension 8 years ago and had multiple workup with no definitive diagnosis. He said he had fell down multiple times since the diagnosis of orthostatic hypotension. What happens this time was, he was lying in bed when the phone, which was out of reach, start ringing. He got out of his bed quickly, then he said his vision went black and fell down to the floor in his bedroom. He was then noted to have slurred speech. Patient was brought to the ER about 35 minutes after symptom onset. No focal weakness/numbness, headache, facial droop, or seizure-like activity. ER physician talked to the on -call tele-neurologist who did not recommend a TPA given symptom have resolved. He said he had extensive workup for orthostatic hypotension but said 'nobody knows the reason". He had negative stress tests 3 months ago. About a year ago he was told his bilateral carotid Doppler ultrasound was normal. He also states about a year ago he had an MRI and was told that "there is something inside, not serious staff " ER course: Initial blood pressure 119/88 but has been noted to be as high as 208 /98. He was given a nicardipine and labetalol while he was in the ER. Head CT was negative for acute findings. Chest x-ray showed retrocardiac opacity, atelectasis likely, but pneumonia also a possibility. Labs shows sodium of 147 , chloride 114, BUN 54, creatinine 3.2. Hospital Course Pt admitted for a 10 minute episode of slurred speech. Resolved in the ER. Of note, SBP in the ER reached 220s. Pt started on amlodipine and BP slowly improved. Of note pt with longstanding hx orthostatic hypotension. Indeed, orthostatics checked while in the hospital notable for seated BP 143/70, decreased to 79/40 when the patient stood up. TIA workup did not show any evidence of TIA as seen on imaging above Pt seen by PT, OT, ST. PT advised HHPT which was requested of case management prior to discharge. Copy of dc summary given to pt and his prior to discharge Home Meds Reported Medications Tobramycin-Dexamethasone (Tobramycin-Dexamethasone Ophth) 0.3%-0.1% - 5 Ml Drops.susp, 1 DROP LEFT EYE TID, #1 EA 01/10/17 Doxycycline Hyclate* (Doxycycline Hyclate*) 100 Mg Tablet., 100 MG PO BID, TAB 01/10/17 Follow-up Plan PCP within 1 week Neurology referral info given Primary Care Provider Onel Roberts Time spent on discharge: > 30 minutes Pending Labs Laboratory Tests Test 01/11/17 17:35 01/12/17 07:24 Urine Color STRAW (YELLOW) Urine Clarity CLEAR (CLEAR) Urine pH 6.0 (5.0-9.0) Urine Specific [place] 1.011 (1.003-1.030) Urine Ketones NEGATIVEmg/dL (NEGATIVE) Urine Nitrite NEGATIVEmg/dL (NEGATIVE) Urine Bilirubin NEGATIVEmg/dL (NEGATIVE) Urine Urobilinogen NEGATIVEmg/dL (NEGATIVE) Urine Leukocyte Esterase NEGATIVELeu/ul (NEGATIVE) Urine Microscopic RBC 4/HPF (0-5) Urine Microscopic WBC 0/HPF (0-5) Urine Hemoglobin 1+mg/dL (NEGATIVE) Urine Glucose 1+mg/dL (NEGATIVE) Urine Total Protein 2+mg/dl (NEGATIVE) Sodium Level 146mmol/L (135-144) Potassium Level 4.5mmol/L (3.5-5.1) Chloride Level 115mmol/L (97-110) Carbon Dioxide Level 21mmol/L (21-31) Anion Gap 15 (8-16) Blood Urea Nitrogen 43mg/dl (7-20) Creatinine 2.71mg/dl (0.61-1.24) Glucose Level 93mg/dl (70-220) Calcium Level 8.9mg/dl (8.4-10.2) Magnesium Level 2.0mg/dl (1.7-2.5) STUART JARRELL MD Jan 12, 2017 17:29
--- NOTE | 2017-01-12 17:37 | PDOCDIS ---
Discharge Instructions DIAGNOSIS Discharge Diagnosis hypertensive emergency with resultant TIA CONDITION Patient Condition: Stable HOME CARE INSTRUCTIONS: Special Diet: cardiac FOLLOW UP/APPOINTMENTS Follow-up Plan The physical therapist advised home health physical therapy and some home health. I have placed a referral to the caseworker protective services to set these things up for you. If you do not hear from any telephonic case manager within 2 days, please call the hospital at and ask for the case management department at extension [phone]. Please see your regular doctor within 1 weeks Here is the information for the neurologist/stroke and brain doctor I mentioned Dr Dhaval Boone Office Address [id number] [place] [address] Office STUART JARRELL MD Jan 12, 2017 17:37
== END 2017-01-12 18:46 | disposition home or self-care (01) | DRG 69 ==
LOC: E/R 19:21 → MS4 21:04
PROVIDERS: ADMIT Internal Medicine; ATTEND Internal Medicine
DX: G45.9 Transient cerebral ischemic attack, unspecified (principal); N17.9 Acute kidney failure, unspecified; E87.0 Hyperosmolality and hypernatremia; R13.0 Aphagia; J98.11 Atelectasis; I95.1 Orthostatic hypotension; I16.0 Hypertensive urgency; I12.9 Hypertensive chronic kidney disease with stage 1 through stage 4 chronic kidney disease, or unspecified chronic kidney disease; N18.9 Chronic kidney disease, unspecified
CPT/HCPCS: 70450; 70546; 70549; 70551; 71010; 80048; 80053; 80061; 80307; 81001; 82550; 82553; 83036; 83735; 84484; 85025; 85610; 85730; 92523; 92526; 92610; 93005; 93306; 93880; 96374; 97162; 97166; J0360; J1644